=== PATIENT | female | born 1995 | race African-American/Black ===

== ENCOUNTER 2017-02-24 21:55 | Emergency (ER) | payer SELFPAY ==
[~2017-02-24] VITALS: Ht 175.3 cm; Wt 61.3 kg
[2017-02-24 22:00] VITALS: BP 102/62
== END 2017-02-25 02:19 | disposition home or self-care (01) ==
LOC: ER 23:56
DX: B02.9 Zoster without complications (principal); F12.10 Cannabis abuse, uncomplicated
CPT/HCPCS: 99282

== ENCOUNTER 2017-03-21 12:06 | Emergency (ER) | payer MEDICAID ==
[~2017-03-21] VITALS: Ht 175.3 cm; Wt 63.0 kg
[2017-03-21 12:12] VITALS: BP 107/68
== END 2017-03-21 15:01 | disposition home or self-care (01) ==
LOC: ER 14:42
DX: M54.5 Low back pain (principal)
CPT/HCPCS: 99281

== ENCOUNTER 2024-09-20 09:18 | Emergency (ER) | payer MEDICAID, OTHER ==
[~2024-09-20] VITALS: Ht 177.8 cm; Wt 65.0 kg
[2024-09-20 09:19] VITALS: O2SAT 98
[2024-09-20] MEDS ORDERED: INSULIN REGULAR (DRIP) 100 UNITS in SODIUM CHLORIDE 0.9% 99 ML IV SCH (10:00)
[2024-09-20] MEDS: MORPHINE SULFATE 2 MG/ML INJ (NOT FOR IM USE) IV ONE (10:15)
[2024-09-20 10:35] LABS: CARBON DIOXIDE 22 mEq/L (21-32); CHLORIDE 105 mEq/L (98-107); POTASSIUM 3.4 mEq/L (3.5-5.1); SODIUM 138 mEq/L (136-145)
[2024-09-20 10:37] LABS: PROTHROMBIN TIME 11.5 sec (9.6-11.0)
[2024-09-20 10:40] LABS: CREATININE 0.7 mg/dL (0.6-1.0); GLUCOSE 112 mg/dL (70-105)
[2024-09-20 10:41] LABS: UREA NITROGEN BLOOD 6 mg/dL (9-23)
[2024-09-20 10:42] LABS: ALANINE AMINOTRANSFERASE 7 IU/L (10-49); ALBUMIN 4.3 g/dL (3.2-4.8); ASPARTATE AMINOTRANSFERASE 19 IU/L (<34)
[2024-09-20 10:43] LABS: BASOPHILS % 0.4 % (0.0-2.0); BILIRUBIN DIRECT 0.2 mg/dL (<=3.0); BILIRUBIN TOTAL 0.5 mg/dL (0.1-1.0); EOSINOPHILS % 0.6 % (0.0-5.0); HCG SCREEN POSITIVE; HEMATOCRIT. 38.6 % (36.0-48.0); HEMOGLOBIN. 12.7 g/dL (12.0-16.0); LYMPHOCYTES % 26.1 % (20.0-50.0); MEAN CORPUSCULAR HEMOGLOBIN 29.5 pg (28.0-32.0); MEAN CORPUSCULAR HGB CONC 32.9 g/dL (31.0-37.0); MEAN CORPUSCULAR VOLUME 89.7 fL (81.0-99.0); MEAN PLATELET VOLUME 8.5 fl (7.4-10.4); NEUTROPHILS % 65.9 % (40.0-76.0); PLATELET 256 x1000/uL (130-400); PROTEIN TOTAL 7.4 g/dL (6.0-8.3); RED BLOOD CELL COUNT 4.31 mill/uL (4.2-5.4); WHITE BLOOD COUNT 7.3 x1000/uL (4.5-11.0)
[2024-09-20] MEDS: ONDANSETRON HCL 4MG/2ML INJ IV ONE ×2 (10:48→14:48)
[2024-09-20] MEDS: ACETAMINOPHEN 325MG TABLET PO ONE ×2 (10:48→14:48)
[2024-09-20] MEDS: SODIUM CHLORIDE 0.9% 1,000 ML IV ONE (10:48)
[2024-09-20 10:52] LABS: ETHANOL BLOOD < 10 mg/dL (<10)
[2024-09-20 11:00] LABS: CLARITY URINE CLEAR (CLEAR); COLOR URINE YELLOW (YELLOW); GLUCOSE URINE NEGATIVE (NEGATIVE); KETONES URINE 2+ (NEGATIVE); LEUKOCYTE ESTERASE URINE NEGATIVE (NEGATIVE); NITRITE URINE NEGATIVE (NEGATIVE); OCCULT BLOOD URINE NEGATIVE (NEGATIVE); PH URINE 6.5 (4.5-8.0); PROTEIN URINE TRACE (NEGATIVE); SPECIFIC GRAVITY URINE 1.027 (1.005-1.030)
[2024-09-20 11:17] LABS: MUCUS URINE 1+ /lpf (< = 2+); SQUAMOUS EPITHELIAL CELL URINE 3+ /lpf (RARE/1+)
[2024-09-20 11:18] LABS: BACTERIA URINE 1+
[2024-09-20 11:19] LABS: RBC URINE NONE SEEN /hpf (0-2); WBC URINE 0-2 /hpf (0-2)
[2024-09-20 11:34] LABS: *AMPHETAMINES SCREEN URINE NEGATIVE (NEGATIVE); *BARBITURATES SCREEN URINE NEGATIVE (NEGATIVE); *BENZODIAZEPINES SCREEN URINE NEGATIVE (NEGATIVE); *COCAINE SCREEN URINE NEGATIVE (NEGATIVE); CANNABINOID URINE SCREEN NEGATIVE (NEGATIVE); ECSTASY MDMA SCREEN URINE NEGATIVE (NEGATIVE); METHADONE URINE SCREEN NEGATIVE (NEGATIVE); OPIATES URINE SCREEN NEGATIVE (NEGATIVE); PHENCYCLIDINE URINE SCREEN NEGATIVE (NEGATIVE)
[2024-09-20] MEDS: POTASSIUM CHLORIDE 10MEQ TABLET SR PO ONE (14:48)
[2024-09-20 15:05] VITALS: BP 99/61; PULSE 65; RESP 11; TEMP 36.61404; O2SAT 100
== END 2024-09-20 15:15 | disposition home or self-care (01) ==
LOC: ER 09:18
DX: O00.01 Abdominal pregnancy with intrauterine pregnancy (principal); R10.2 Pelvic and perineal pain; N83.202 Unspecified ovarian cyst, left side; Z3A.01 Less than 8 weeks gestation of pregnancy
CPT/HCPCS: 80076; 80305; 80048; 81003; 80320; 84703; 84702; 83690; 85025; 85610; 36415; 76801; 76817; 96374; 96376; 99285; J2405; J7030; Z7610; G0480